=== PATIENT | male | born 1965 | race Caucasian/White ===

== ENCOUNTER → 2016-09-28 | Outpatient (REF) | payer BC | LOC: M LAB REF 11:52 | PROVIDERS: ATTEND Internal Medicine | DX: Z01.89 Encounter for other specified special examinations (principal) ==

== ENCOUNTER → 2019-01-23 | Outpatient (REF) | payer BC ==
[2019-01-23 14:45] LABS: C REACTIVE PROTEIN QUANTITATIV < 0.30 MG/DL (0.00-0.30); RHEUMATOID FACTOR QUANT < 10.0 IU/ML (<15.0)
[2019-01-26 00:09] LABS: ANTINUCLEAR ANTIBODIES DIRECT Negative (Negative); BABESIOSIS LEVEL IGG <1:10 (Neg:<1:10); BABESIOSIS LEVEL IGM <1:10 (Neg:<1:10); Lyme Disease IgG/IgM Antibodie <0.91 ISR (0.00-0.90); Lyme Disease IgM Ab Quantitati <0.80 index (0.00-0.79)
== END ==
LOC: M LAB REF 13:11
PROVIDERS: ATTEND Nurse Practitioner Family
DX: Z11.59 Encounter for screening for other viral diseases (principal); M25.50 Pain in unspecified joint

== ENCOUNTER → 2020-08-25 | Outpatient (REF) | payer BC | LOC: M LAB REF 16:33 | PROVIDERS: ATTEND Physician Assistant Medical | DX: R10.9 Unspecified abdominal pain (principal) ==

== ENCOUNTER → 2020-09-17 | Outpatient (CLI) | payer BC ==
[~2020-09-17] MED LIST: OMEP1CAP73 PO
== END ==
LOC: M LABSMTC 11:47
PROVIDERS: ATTEND Anesthesiology
DX: Z01.812 Encounter for preprocedural laboratory examination (principal); Z20.822 Contact with and (suspected) exposure to COVID-19

== ENCOUNTER 2020-09-22 09:27 | Day surgery (SDC) | payer BC ==
[~2020-09-22] VITALS: Ht 177.8 cm; Wt 95.4 kg
[~2020-09-22 09:27] MED LIST changes: +NS 1,000 ML IV ONE
--- OUTSIDE RECORDS SUMMARY | 2020-09-22 09:33 | CCD ---
Continuity of Care Document (CCD) Created on: 08/25/2020 Robert Slade External Reference #: [id number] : [id number] Sex: Male Author Author Robert MARISCAL Organization Unknown Address [address] [place] [id number] Phone [phone] Care Team Providers Care Donor Center Technician Name Role Phone Paco Massey JR, MD AUTM Unavailable Problems Active Problems Provider Date Dizziness and giddiness Paco Massey MD Onset: Dizziness and giddiness Paco Massey MD Onset: Gastroesophageal reflux disease Paco Massey MD Onset: 12/10/2011 Obstructive sleep apnea syndrome Paco Massey MD Onset : 08/29/2012 Social History Type Date Description Comments Sex Unknown ETOH Use Rarely consumes alcohol Tobacco Use Start: Unknown End: Unknown Patient is a former smoker Quit 1995, 15 pack/year history Allergies, Adverse Reactions, Alerts Description No Known Drug Allergies Medications Active Medications SIG Qnty Indications Ordering Provide r Date Sucralfate 1gm Tablets Take one tablet before breakfast and dinner 60tabs KIMBERLI De La Cruz JR 08/25/[address] 1 by mouth every day 90caps Paco Massey MD 07/24/2019 Proair HFA 108(90Base) mcg/Act Aer osol 2 puffs four times a day as needed 25.5gm Karen Morfin FNP 06/16/2016 Immunizations Description No Information Available Vital Signs Date Vital Result Comment 08/25/2020 3:22pm BP Systolic 130 mmHg BP Diastolic 64 mmHg Heart Rate 58 /min Height 69.25 inches 5'9.25" Weight 209.00 lb BMI (Body Mass Index) 30.6 kg/m2 04/14/2020 8:00am Heart Rate 68 /min Height 69.25 inches 5'9.25" Weight 201.00 lb O2 % BldC Oximetry 99 % BMI (Body Mass Index) 29.5 kg/m2 Results Test Acquired Date Facility Test Result H/L Range Note Laboratory test finding 08/25/2020 [facility] [address] [place] [address] [phone] H Pylori Serum Quant Igg Lolita <pending> Basic Metabolic Panel 08/25/2020 [facility] Garment Cutter: Dr Paco Massey [place] [id number] [phone] Glucose 94 mg/dL 74 - 99 1 BUN 17 mg/dL 7 - 18 Creatinine 1.1 mg/dL 0.6 - 1.3 Sodium 138 mEq/L 136 - 145 Potassium 4.3 mEq/L 3.5 - 5.1 Chloride 102 mEq/L 98 - 107 Carbon Dioxide 30 mEq/L 21 - 32 Calcium 8.7 mg/dL 8.5 - 10.1 GFR >= 60 mL/min >60 GFR >= 60 mL/min >60 2 Complete Blood Count 08/25/2020 [facility] Garment Cutter: [place] [address] [phone] WBC 6.3 x10*3/UL 4.1 - 10.9 RBC 5.17 x10*6/UL 4.20 - 6.30 Hemoglobin 15.4 g/dL 12.0 - 18.0 Hematocrit 45.2 % 37.0 - 51.0 MCV 87.3 fL 80.0 - 97.0 MCH 29.8 pg 26.0 - 32.0 MCHC 34.1 g/dL 31.0 - 38.0 RDW 13.1 % 11.6 - 13.7 PLT 161 x10*3/UL 140 - 440 MPV 9.9 FL 7.8 - 11.0 Lymph % 38.6 % 10.0 - 58.5 Mid % 7.7 % 1.7 - 9.3 Neut % 53.7 % 37.0 - 92.0 Lymph # 2.4 x10*3/UL 0.6 - 4.1 Mid # 0.5 x10*3/UL 0.1 - 0.6 Neut # 3.4 x10*3/UL 2.0 - 7.8 Laboratory test finding 04/14/2020 [facility] kat[facility] espinoza Garment Cutter: [place] [address] [phone] PSA 0.83 ng/mL <4.00 3 Complete Blood Count 04/14/2020 [facility] katja castañeda Garment Cutter: [place] [address] [phone] WBC 5.8 x10*3/UL 4.1 - 10.9 RBC 5.50 x10*6/UL 4.20 - 6.30 Hemoglobin 16.1 g/dL 12.0 - 18.0 Hematocrit 47.8 % 37.0 - 51.0 MCV 86.8 fL 80.0 - 97.0 MCH 29.3 pg 26.0 - 32.0 MCHC 33.8 g/dL 31.0 - 38.0 RDW 13.0 % 11.6 - 13.7 PLT 161 x10*3/UL 140 - 440 MPV 9.8 FL 7.8 - 11.0 Lymph % 32.7 % 10.0 - 58.5 Mid % 8.0 % 1.7 - 9.3 Neut % 59.3 % 37.0 - 92.0 Lymph # 1.9 x10*3/UL 0.6 - 4.1 Mid # 0.5 x10*3/UL 0.1 - 0.6 Neut # 3.4 x10*3/UL 2.0 - 7.8 Comprehensive Chem Profile 04/14/2020 [facility] kat[facility] robb Garment Cutter: [place] [address] [phone] Glucose 89 mg/dL 74 - 99 4 BUN 17 mg/dL 7 - 18 Creatinine 0.9 mg/dL 0.6 - 1.3 Sodium 142 mEq/L 136 - 145 Potassium 4.3 mEq/L 3.5 - 5.1 Chloride 106 mEq/L 98 - 107 Carbon Dioxide 24 mEq/L 21 - 32 Calcium 9.0 mg/dL 8.5 - 10.1 Alk. Phosphatase 93 mg/dL 46 - 116 Total Bilirubin 1.8 mg/dL High 0.2 - 1.0 Ast (Sgot) 23 U/L 15 - 37 Alt (SGPT) 36 U/L 12 - 78 Albumin 4.1 g/dL 3.4 - 5.0 Total Protein 7.2 g/dL 6.4 - 8.2 A/G Ratio 1.32 CALC 1.00 - 1.90 GFR >= 60 mL/min >60 GFR >= 60 mL/min >60 5 Lipid Profile 04/14/2020 [facility] Garment Cutter: Dr Paco Massey [place], [place] [id number] [phone] Cholesterol 172 mg/dL 131 - 200 Triglycerides 99 mg/dL 30 - 150 HDL Cholesterol 49 mg/dL 35 - 60 LDL (Calculated) 103 CALC 50 - 159 1 100-125 mg/dL PRE-DIABET ES/FASTING >126 mg/dL DIABETES/FASTING 2 CHRONIC KIDNEY DISEASE STAGI NG PER NKF STAGE I & II GFR >= 60 NORMAL TO MILDLY DECREASED STAGE III GFR 30-59 MODERATELY DECREASED STAGE IV GFR 15-29 SEVERELY DECREASED STAGE V GFR <15 VERY LITTLE GFR LEFT ESRD GFR <15 ON REVENUE SPECIALIST 3 This assay was performed on the ahoyDoc EXL using the B- Galactosidase/CPRG methodology and should not be compared interchangeably with other methods. The PSA should not be used alone as a screening test for the presence or absence of malignant disease. 4 100-125 mg/dL PRE-DIABET ES/FASTING >126 mg/dL DIABETES/FASTING 5 CHRONIC KIDNEY DISEASE STAGI NG PER NKF STAGE I & II GFR >= 60 NORMAL TO MILDLY DECREASED STAGE III GFR 30-59 MODERATELY DECREASED STAGE IV GFR 15-29 SEVERELY DECREASED STAGE V GFR <15 VERY LITTLE GFR LEFT ESRD GFR <15 ON REVENUE SPECIALIST Procedures Date Code Description Status 04/14/2020 67097 EKG/Interpretation & Report Comp leted 09/29/2012 [id number] Colonoscopy Completed Medical Devices Description No Information Available Encounters Type Date Location Provider Dx Diagnosis Office Visit 04/14/2020 8:00a [facility] Paco Massey MD Z00.00 Encntr for general adult medical exam w/ o abnormal findings M25.511 Pain in right shoulder K21.9 Gastro-esophageal reflux dis ease without esophagitis G47.33 Obstructive sleep apnea (sal lt) (pediatric) E80.4 Gilbert syndrome E78.00 Pure hypercholesterolemia, u nspecified K58.9 Irritable bowel syndrome wit hout diarrhea E66.3 Overweight Z68.29 Body mass index (BMI) 29.0-2 9.9, adult Z12.5 Encounter for screening for malignant neoplasm of prostate Assessments Date Code Description Provider 04/14/2020 Z00.00 Encounter for genera l adult medical examination without abnormal findings Paco Massey MD 04/14/2020 M25.511 Pain in right shoulder Paco Massey MD 04/14/2020 K21.9 Gastro-esophageal reflux disease without esophagitis Paco Massey MD 04/14/2020 G47.33 Obstructive sleep apnea (adult) (pediatric) Paco Massey MD 04/14/2020 E80.4 Gilbert syndrome Paco haskins MD 04/14/2020 E78.00 Pure hypercholesterolemia, unspe cified Paco Massey MD 04/14/2020 K58.9 Irritable bowel syndrome without diarrhea Paco Massey MD 04/14/2020 E66.3 Overweight Paco perez MD 04/14/2020 Z68.29 Body mass index (BMI) 29.0-29.9, adult Paco Massey MD 04/14/2020 Z12.5 Encounter for screening for khris gnant neoplasm of prostate Paco Massey MD Plan of Treatment Future Appointment(s):* 04/15/2021 8:00 am - Paco Massey MD at [facility] 08/25/2020 - Thom Mariscal JR PA* All * New Medication:* Sucralfate 1 gm - Take one tablet before breakfast and dinner Functional Status Description No Information Available Mental Status Description No Information Available Referrals Refer to Reason for Referral Status Appt Date [facility] Dermatology CRYSTAL GROWING TECHNICIAN CONSULT FOR FACIAL LESIONS, ? BASAL VICKY L Sent [address] [id number] [phone]
--- OUTSIDE RECORDS SUMMARY | 2020-09-22 09:33 | CCD | Continuity of Care Document ---
Author Author Robert MARISCAL Organization Unknown Address [address] [place] [address] Phone [phone] Care Team Providers Care System Controller Name Role Phone Paco Massey JR, MD [...] H/L Range Note Laboratory test finding 08/25/2020 [facility] [address] [place] [address] [phone] H Pylori Serum Quant IgG Lolita 0.51 Normal 0.0 0-0.79 1 Basic Metabolic Panel 08/25/2020 [facility] Shuttle Route Vehicle Operator: Dr Paco Massey [place], [place] [id number] [phone] Glucose 94 mg/dL 74 - 99 2 BUN 17 mg/dL 7 - 18 Creatinine 1.1 mg/dL 0.6 - 1.3 Sodium 138 mEq/L 136 - 145 Potassium 4.3 mEq/L 3.5 - 5.1 Chloride 102 mEq/L 98 - 107 Carbon Dioxide 30 mEq/L 21 - 32 Calcium 8.7 mg/dL 8.5 - 10.1 GFR >= 60 mL/min >60 GFR >= 60 mL/min >60 3 Complete Blood Count 08/25/2020 [facility] Shuttle Route Vehicle Operator: Dr Paco Massey [place], [place] [address] [phone] WBC 6.3 x10*3/UL 4.1 - 10.9 RBC [...] 2.0 - 7.8 Laboratory test finding 04/14/2020 [facility] Supervisor katja espinoza Shuttle Route Vehicle Operator: [place] [address] [phone] PSA 0.83 ng/mL <4.00 4 Complete Blood Count 04/14/2020 [facility] katja castañeda Shuttle Route Vehicle Operator: Dr [place] [address] [phone] WBC 5.8 x10*3/UL 4.1 - 10.9 RBC [...] 2.0 - 7.8 Comprehensive Chem Profile 04/14/2020 [facility] katja robb Shuttle Route Vehicle Operator: [place] [address] [phone] Glucose 89 mg/dL 74 - 99 5 BUN 17 mg/dL 7 - 18 Creatinine [...] mL/min >60 GFR >= 60 mL/min >60 6 Lipid Profile 04/14/2020 [facility] Shuttle Route Vehicle Operator: [place] [address] [phone] Cholesterol 172 mg/dL 131 - 200 Triglycerides 99 mg/dL 30 - 150 HDL Cholesterol 49 mg/dL 35 - 60 LDL (Calculated) 103 CALC 50 - 159 1 Result Units: Index Value Negative <0.80 Equivocal 0.80 - 0.89 Positive >0.89 Performed at: RN - [facility] [address] [id number] Shuttle Route Vehicle Operator: Jordyn Valdovinos MD, Phone: [phone] 2 100-125 mg/dL PRE-DIABET ES/FASTING >126 mg/dL DIABETES/FASTING 3 CHRONIC KIDNEY DISEASE STAGI NG PER NKF STAGE I & II GFR >= 60 NORMAL TO MILDLY DECREASED STAGE III GFR 30-59 MODERATELY DECREASED STAGE IV GFR 15-29 SEVERELY DECREASED STAGE V GFR <15 VERY LITTLE GFR LEFT ESRD GFR <15 ON AGRICULTURE INTERNSHIP 4 This assay was performed on the Siemens Dimension EXL using the B- Galactosidase/CPRG methodology and should not be compared interchangeably with other methods. The PSA should not be used alone as a screening test for the presence or absence of malignant disease. 5 100-125 mg/dL PRE-DIABET ES/FASTING >126 mg/dL DIABETES/FASTING 6 CHRONIC KIDNEY DISEASE STAGI NG PER NKF STAGE I & II GFR >= 60 NORMAL TO MILDLY DECREASED STAGE III GFR 30-59 MODERATELY DECREASED STAGE IV GFR 15-29 SEVERELY DECREASED STAGE V GFR <15 VERY LITTLE GFR LEFT ESRD GFR <15 ON AGRICULTURE INTERNSHIP Procedures Date Code Description Status 04/14/2020 56338 EKG/Interpretation & Report Comp leted 09/29/2012 [id number] Colonoscopy Completed Medical Devices Description No Information Available Encounters Type Date Location Provider Dx Diagnosis Office Visit 08/25/2020 3:20p [facility] R10.816 Epigastric abdominal tendern ess E78.00 Pure hypercholesterolemia, u nspecified Office Visit 04/14/2020 8:00a [facility] Paco Massey MD Z00.00 Encntr [...] of prostate Assessments Date Code Description Provider 08/25/2020 R10.816 Epigastric abdominal tenderness KIMBERLI De La Cruz JR 08/25/2020 E78.00 Pure hypercholesterolemia, unspe cified KIMBERLI De La Cruz JR 04/14/2020 Z00.00 Encounter for genera l adult medical examination without abnormal findings Paco Massey MD 04/14/2020 M25.511 Pain in right shoulder Paco Masesy MD 04/14/2020 K21.9 Gastro-esophageal reflux disease without [...] 8:00 am - Paco Massey MD at [facility] 04/14/2020 - Paco Massey MD* Z00.00 Encounter for general adult medical examination without abnormal findings * M25.511 Pain in right shoulder * K21.9 Gastro-esophageal reflux disease without esophagitis * G47.33 Obstructive sleep apnea (adult) (pediatric) * E80.4 Gilbert syndrome * E78.00 Pure hypercholesterolemia, unspecified * K58.9 Irritable bowel syndrome without diarrhea * E66.3 Overweight * Z68.29 Body mass index (BMI) 29.0-29.9, adult * Z12.5 Encounter for screening for malignant neoplasm of prostate * All * Comments:* Question basal cell CA. Refer to dermatology. Functional Status Description No Information Available Mental Status Description No Information Available Referrals Refer to Reason for Referral Status Appt Date Domingo Ospina MD COMPUTER SUPPORT SPECIALIST INSTRUCTOR CONSULT FOR SCREENING EGD /COLONOSCOPY DX: UPPER ABD PAIN Patient Notified 09/09/[address] [facility] [address] [phone] Solo Frias MD CONSULT FOR SCREENING EGD/CO LONOSCOPY DX: UPPER ABD PAIN PLEASE CANCEL REFERRAL, THANK YOU Patient Declined [facility] Medical Practice [address] [facility] [address] [facility] [address] [phone] [facility] Dermatology COMPUTER SUPPORT SPECIALIST INSTRUCTOR CONSULT FOR FACIAL LESIONS, ? BASAL VICKY L Sent 826 [facility] [address] [place] [address] [phone]
--- OUTSIDE RECORDS SUMMARY | 2020-09-22 09:33 | CCD | Continuity of Care Document ---
Author Author Robert HUTCHISON Organization Unknown Address [address] [place] [address] Phone [phone] Care Team Providers Care Manager Insurance Name Role Phone Paco Massey JR, MD [...] H/L Range Note Laboratory test finding 08/25/2020 [facility] [address] [place] [address] [phone] H Pylori Serum Quant Igg Lolita <pending> Laboratory test finding 04/14/2020 [facility] katja espinoza Agriscience Teacher: [place] [address] [phone] PSA 0.83 ng/mL <4.00 1 Complete Blood Count 04/14/2020 [facility] Agriscience Teacher: [place] [address] [phone] WBC 5.8 x10*3/UL 4.1 - 10.9 RBC [...] 2.0 - 7.8 Comprehensive Chem Profile 04/14/2020 [facility] Agriscience Teacher: [place] [address] [phone] Glucose 89 mg/dL 74 - 99 2 BUN 17 [...] >60 GFR >= 60 mL/min >60 3 Lipid Profile 04/14/2020 [facility] Agriscience Teacher: [place] [address] [phone] Cholesterol 172 mg/dL 131 - 200 Triglycerides 99 mg/dL 30 - 150 HDL Cholesterol 49 mg/dL 35 - 60 LDL (Calculated) 103 CALC 50 - 159 1 This assay was performed on the Siemens Dimension EXL using the B- Galactosidase/CPRG methodology and should not be compared interchangeably with other methods. The PSA should not be used alone as a screening test for the presence or absence of malignant disease. 2 100-125 mg/dL PRE-DIABET ES/FASTING >126 mg/dL DIABETES/FASTING 3 CHRONIC KIDNEY DISEASE STAGI NG PER NKF STAGE I & II GFR >= 60 NORMAL TO MILDLY DECREASED STAGE III GFR 30-59 MODERATELY DECREASED STAGE IV GFR 15-29 SEVERELY DECREASED STAGE V GFR <15 VERY LITTLE GFR LEFT ESRD GFR <15 ON CASEWORKER INTAKE Procedures Date Code Description Status 04/14/2020 33538 EKG/Interpretation & Report Comp leted 09/29/2012 [id number] Colonoscopy Completed Medical Devices Description No Information Available Encounters Type Date Location Provider Dx Diagnosis Office Visit 04/14/2020 8:00a [facility] Paco Massey MD Z00.00 Encntr [...] 8:00 am - Paco Massey MD at [facility] 08/25/2020 - KIMBERLI De La Cruz JR* All * New Medication:* Sucralfate 1 gm - Take one tablet before breakfast and dinner Functional Status Description No Information Available Mental Status Description No Information Available Referrals Refer to Reason for Referral Status Appt Date [facility] Dermatology PSYCHOMETRICIAN CONSULT FOR FACIAL LESIONS, ? BASAL VICKY L Sent [address] [address] [phone]
--- OUTSIDE RECORDS SUMMARY | 2020-09-22 09:33 | CCD | Continuity of Care Document ---
Author Author Robert OSPINA M.D. Organization Unknown Address [address] [place] [address] Phone [phone] Care Team Providers Care Grapple Operator Name Role Phone Thom Mariscal Collins F M.D. AUTKary [phone] Problems Active Problems Provider Date Screening for malignant neoplasm of colon Domingo thapa M.D. Onset: 09/09/2020 Social History Type Date Description Comments Sex Unknown ETOH Use Denies alcohol use Tobacco Use Start: Unknown Patient has never smoked Allergies, Adverse Reactions, Alerts Description No Known Drug Allergies Medications Active Medications SIG Qnty Indications Ordering Provide r Date Omeprazole 40mg Capsules DR 1 cap by mouth twice a day 180caps Domingo Ospina M.D. [address] [id number] Tablets as directed 1box Domingo Ospina M.D. 09/09/2020 Sucralfate 1gm Tablets Take 1 Tablet By Mouth Before Breakfast And Dinner Unknown Omeprazole 20mg Capsules DR Unknown Immunizations Description No Information Available Vital Signs Date Vital Result Comment 09/09/2020 2:46pm Height 69.5 inches 5'9.50" Weight 207.00 lb BP Systolic 135 mmHg BP Diastolic 89 mmHg Heart Rate 55 /min BMI (Body Mass Index) 30.1 kg/m2 Weight 93.895 kg Body Temperature 97.7 F Results Description No Information Available Procedures Description No Information Available Medical Devices Description No Information Available Encounters Type Date Location Provider Dx Diagnosis Office Visit 09/09/2020 2:15p Main Office Domingo Ospina M.D. R 10.30 Lower abdominal pain, unspecified R14.0 Abdominal distension (gaseou s) R11.0 Nausea Assessments Date Code Description Provider 09/09/2020 R10.30 Lower abdominal pain, unspecifie d Domingo Ospina M.D. 09/09/2020 R14.0 Abdominal distension (gaseous) Juliane corinne Ospina M.D. 09/09/2020 R11.0 Nausea Domingo pinto M.D. Plan of Treatment Future Appointment(s):* 09/15/2020 7:00 am - Jane-Ana at Main Office * 09/22/2020 10:15 am - Domingo Ospina M.D. at Main Office 09/09/2020 - Domingo Ospina M.D.* R10.30 Lower abdominal pain, unspecified * Comments:* 55 yo wm who presents for a h/o abdominal pain/bloating/nausea. No c/o fevers, weight loss, change in bowel habits, or rectal bleeding. No family h/o colon cancer. No h/o chest pain, or sob. Plan:1. Colonoscopy + egd.2. Informed consent. * R14.0 Abdominal distension (gaseous)* Comments:* As above. * R11.0 Nausea* Comments:* As above. Functional Status Description No Information Available Mental Status Description No Information Available Referrals Description No Information Available
--- OUTSIDE RECORDS SUMMARY | 2020-09-22 09:33 | CCD ---
Continuity of Care Document (CCD) Created on: 09/11/2020 Robert Slade External Reference #: [id number] : 1965 Sex: Female Author Author Robert OSPINA M.D. Organization Unknown Address [address] [place] [address] Phone [phone] Care Team Providers Care Spring Tacker Name Role Phone Thom Mariscal Collins F M.D. AUTKary [phone] Problems Active Problems Provider Date Screening for [...] day 180caps Domingo Ospina M.D. [address] [id number] Tablets as directed 1box Domingo Ospina M.D. [...] Medical Devices Description No Information Available Encounters Description No Information Available Assessments Date Code Description Provider 09/09/2020 R10.30 Lower abdominal pain, unspecifie d Domingo Ospina M.D. 09/09/2020 R14.0 Abdominal distension (gaseous) G corinne Ospina M.D. 09/09/2020 R11.0 Nausea Domingo pinto M.D. Plan of Treatment Future Appointment(s):* 09/15/2020 7:00 am - JaneAna at Main Office * 09/22/2020 10:15 am [...]
--- OUTSIDE RECORDS SUMMARY | 2020-09-22 09:33 | CCD | Continuity of Care Document ---
Author Author Robert HUTCHISON Organization Unknown Address [address] [place] [address] Phone [phone] Care Team Providers Care Supply Manager Name Role Phone Paco Massey JR, MD [...] DR 1 by mouth every day 90caps Pcao Massey MD 07/24/2019 Proair HFA 108(90Base) mcg/Act [...] H/L Range Note Laboratory test finding 08/25/2020 [facility] [address] [place] [address] [phone] H Pylori Serum Quant IgG Lolita 0.51 Normal 0.0 0-0.79 1 Basic Metabolic Panel 08/25/2020 [facility] Sinker Puller: Dr Paco Massey [place], [place] [address] [phone] Glucose 94 mg/dL 74 - 99 2 [...] mL/min >60 3 Complete Blood Count 08/25/2020 [facility] Sinker Puller: Dr Paco Massey [place], [place] [id number] [phone] WBC 6.3 x10*3/UL 4.1 - 10.9 RBC [...] 2.0 - 7.8 Laboratory test finding 04/14/2020 [facility] katja espinoza Sinker Puller: [place] [address] [phone] PSA 0.83 ng/mL <4.00 4 Complete Blood Count 04/14/2020 [facility] In[facility] katja castañeda Sinker Puller: [place] [address] [phone] WBC 5.8 x10*3/UL 4.1 - 10.9 RBC [...] 2.0 - 7.8 Comprehensive Chem Profile 04/14/2020 [facility] katja robb Sinker Puller: [place] [address] [phone] Glucose 89 mg/dL 74 - 99 5 [...] 60 mL/min >60 6 Lipid Profile 04/14/2020 [facility] Sinker Puller: [place] [address] [phone] Cholesterol 172 mg/dL 131 - 200 Triglycerides 99 mg/dL 30 - 150 HDL Cholesterol 49 mg/dL 35 - 60 LDL (Calculated) 103 CALC 50 - 159 1 Result Units: Index Value Negative <0.80 Equivocal 0.80 - 0.89 Positive >0.89 Performed at: - [facility] [id number] Sinker Puller: Jordyn Valdovinos MD, Phone: [phone] 2 100-125 mg/dL PRE-DIABET ES/FASTING >126 mg/dL DIABETES/FASTING 3 CHRONIC KIDNEY DISEASE STAGI NG PER NKF STAGE I & II GFR >= 60 NORMAL TO MILDLY DECREASED STAGE III GFR 30-59 MODERATELY DECREASED STAGE IV GFR 15-29 SEVERELY DECREASED STAGE V GFR <15 VERY LITTLE GFR LEFT ESRD GFR <15 ON DOCUMENT REVIEW ATTORNEY 4 This assay was performed on the [...] LITTLE GFR LEFT ESRD GFR <15 ON DOCUMENT REVIEW ATTORNEY Procedures Date Code Description Status 04/14/2020 86111 EKG/Interpretation & Report Comp leted 09/29/2012 [id number] Colonoscopy Completed Medical Devices Description No Information Available Encounters Type Date Location Provider Dx Diagnosis Office Visit 04/14/2020 8:00a [facility] Paco Massey MD Z00.00 Encntr [...] abdominal tenderness KIMBERLI De La Cruz JR 04/14/2020 Z00.00 [...] 8:00 am - Paco Massey MD at [facility] 04/14/2020 - Paco Massey MD* [...] to Reason for Referral Status Appt Date Solo Frias MD CONSULT FOR SCREENING EGD/COLONOSCOPY D X: UPPER ABD PAIN Sent [facility] Medical Practice 826 [facility] [address] [facility] [address] [phone] [facility] Dermatology DIRECT ENTRY MIDWIFE CONSULT FOR FACIAL LESIONS, ? BASAL VICKY L Sent 826 [facility] [address] [place] [address] [phone]
--- OUTSIDE RECORDS SUMMARY | 2020-09-22 09:34 | CCD ---
Author Author [facility] Organization [facility] Address Unknown Phone Unavailable Care Team Providers Care Clerical Stock Inspector Name Role Phone Simón Ospina MD Unavailable Unavailable Simón Ospina MD Unavailable Unavailable Simón Ospina MD Unavailable Unavailable Simón Ospina MD Unavailable Unavailable Simón Ospina MD Unavailable Unavailable Simón Ospina MD Unavailable Unavailable Simón Ospina MD Unavailable Unavailable Simón Ospina MD Unavailable Unavailable Simón Ospina MD Unavailable Unavailable Simón Ospina MD Unavailable Unavailable Simón Ospina MD Unavailable Unavailable Simón Ospina MD Unavailable Unavailable Simón Ospina MD Unavailable Unavailable Simón Ospina MD Unavailable Unavailable Simón Ospina MD Unavailable Unavailable Simón Ospina MD Unavailable Unavailable Simón Ospina MD Unavailable Unavailable Simón Ospina MD Unavailable Unavailable Simón Ospina MD Unavailable Unavailable Simón Ospina MD Unavailable Unavailable Simón Ospina MD Unavailable Unavailable Simón Ospina MD Unavailable Unavailable Simón Ospina MD Unavailable Unavailable Simón Ospina MD Unavailable Unavailable Simón Ospina MD Unavailable Unavailable Simón Ospina MD Unavailable Unavailable Simón Ospina MD Unavailable Unavailable Simón Ospina MD Unavailable Unavailable Anai, S Domingo MD Unavailable Unavailable Anai, S Domingo MD Unavailable Unavailable Anai, S Domingo MD Unavailable Unavailable Anai, S Domingo MD Unavailable Unavailable Anai, S Domingo MD Unavailable Unavailable Anai, S Domingo MD Unavailable Unavailable Anai, S Domingo MD Unavailable Unavailable Anai, S Domingo MD Unavailable Unavailable Anai, S Domingo MD Unavailable Unavailable Anai, S Domingo MD Unavailable Unavailable Anai, S Domingo MD Unavailable Unavailable Anai, S Domingo MD Unavailable Unavailable Anai, S Domingo MD Unavailable Unavailable Anai, S Domingo MD Unavailable Unavailable Anai, S Domingo MD Unavailable Unavailable Anai, S Domingo MD Unavailable Unavailable Anai, S Domingo MD Unavailable Unavailable Anai, S Domingo MD Unavailable Unavailable Anai, S Domingo MD Unavailable Unavailable Anai, S Domingo MD Unavailable Unavailable Clair, D Long HOSPICE ADMITTING CLERK Unavailable Unavailable Clair, D Long HOSPICE ADMITTING CLERK Unavailable Unavailable Clair, D Long HOSPICE ADMITTING CLERK Unavailable Unavailable Clair, D Long HOSPICE ADMITTING CLERK Unavailable Unavailable Clair, D Long HOSPICE ADMITTING CLERK Unavailable Unavailable Clair, D Long HOSPICE ADMITTING CLERK Unavailable Unavailable Clair, D Long HOSPICE ADMITTING CLERK Unavailable Unavailable Clair, D Long HOSPICE ADMITTING CLERK Unavailable Unavailable Clair, D Long HOSPICE ADMITTING CLERK Unavailable Unavailable Clair, D Long HOSPICE ADMITTING CLERK Unavailable Unavailable Clair, D Long HOSPICE ADMITTING CLERK Unavailable Unavailable Clair, D Long HOSPICE ADMITTING CLERK Unavailable Unavailable Clair, D Long HOSPICE ADMITTING CLERK Unavailable Unavailable Clair, D Long HOSPICE ADMITTING CLERK Unavailable Unavailable Clair, D Long HOSPICE ADMITTING CLERK Unavailable Unavailable Clair, D Long HOSPICE ADMITTING CLERK Unavailable Unavailable Clair, D Long HOSPICE ADMITTING CLERK Unavailable Unavailable Clair, D Long HOSPICE ADMITTING CLERK Unavailable Unavailable Clair, D Long HOSPICE ADMITTING CLERK Unavailable Unavailable Clair, D Long HOSPICE ADMITTING CLERK Unavailable Unavailable Clair, D Long HOSPICE ADMITTING CLERK Unavailable Unavailable Clair, D Long HOSPICE ADMITTING CLERK Unavailable Unavailable Clair, D Long HOSPICE ADMITTING CLERK Unavailable Unavailable Clair, D Long HOSPICE ADMITTING CLERK Unavailable Unavailable Clair, D Long HOSPICE ADMITTING CLERK Unavailable Unavailable Clair, D Long HOSPICE ADMITTING CLERK Unavailable Unavailable Clair, D Long HOSPICE ADMITTING CLERK Unavailable Unavailable Clair, D Long HOSPICE ADMITTING CLERK Unavailable Unavailable Clair, D Long HOSPICE ADMITTING CLERK Unavailable Unavailable Clair, D Long HOSPICE ADMITTING CLERK Unavailable Unavailable Clair, D Long HOSPICE ADMITTING CLERK Unavailable Unavailable Clair, D Long HOSPICE ADMITTING CLERK Unavailable Unavailable Clair, D Long HOSPICE ADMITTING CLERK Unavailable Unavailable Clair, D Long HOSPICE ADMITTING CLERK Unavailable Unavailable Clair, D Long HOSPICE ADMITTING CLERK Unavailable Unavailable Loreta Massey MD Unavailable Unavailable Loreta Massey MD Unavailable Unavailable Loreta Massey MD Unavailable Unavailable Loreta Massey MD Unavailable Unavailable ShilpaLoreta MD Unavailable Unavailable ShilpaLoreta MD Unavailable Unavailable GilaLoreta MD Unavailable Unavailable ShilpaLoreta MD Unavailable Unavailable ShilpaLoreta MD Unavailable Unavailable GilaLoreta MD Unavailable Unavailable ShilpaLoreta MD Unavailable Unavailable GilaLoreta MD Unavailable Unavailable ShilpaLoreta MD Unavailable Unavailable GilaLoreta MD Unavailable Unavailable ShilpaLoreta MD Unavailable Unavailable ShilpaLoreta MD Unavailable Unavailable GilaLoreta MD Unavailable Unavailable ShilpaLoreta MD Unavailable Unavailable GilaLoreta MD Unavailable Unavailable GilaLoreta MD Unavailable Unavailable ShilpaLoreta MD Unavailable Unavailable GilaLoreta MD Unavailable Unavailable GilaLoreta MD Unavailable Unavailable ShilpaLoreta MD Unavailable Unavailable ShilpaLoreta MD Unavailable Unavailable ShilpaLoreta MD Unavailable Unavailable GilaLoreta MD Unavailable Unavailable ShilpaLoreta MD Unavailable Unavailable GilaLoreta MD Unavailable Unavailable GilaLoreta MD Unavailable Unavailable ShilpaLoreta MD Unavailable Unavailable ShilpaLoreta MD Unavailable Unavailable ShilpaLoreta pang MD Unavailable Unavailable GilaLoreta MD Unavailable Unavailable ShilpaLoreta MD Unavailable Unavailable GilaLoreta MD Unavailable Unavailable ShilpaLoreta MD Unavailable Unavailable ShilpaLoreta MD Unavailable Unavailable ShilpaLoreta pang MD Unavailable Unavailable ShilpaLoreta pang MD Unavailable Unavailable ShilpaLoreat pang MD Unavailable Unavailable ShilpaLoreta MD Unavailable Unavailable GilaLoreta pang MD Unavailable Unavailable GilaLoreta MD Unavailable Unavailable GilaLoreta MD Unavailable Unavailable GilaLoreta pang MD Unavailable Unavailable ShilpaLoreta pang MD Unavailable Unavailable GilaLoreta pang MD Unavailable Unavailable GilaLoreta MD Unavailable Unavailable ShilpaLoreta MD Unavailable Unavailable GilaLoreta MD Unavailable Unavailable GilaLoreta MD Unavailable Unavailable GilaLoreta MD Unavailable Unavailable GilaLoreta MD Unavailable Unavailable ShilpaLoreta MD Unavailable Unavailable ShilpaLoreta MD Unavailable Unavailable ShilpaLoreta MD Unavailable Unavailable ShilpaLoreta MD Unavailable Unavailable GilaLoreta MD Unavailable Unavailable GilaLoreta MD Unavailable Unavailable Shilpa, F Antonio MD Unavailable Unavailable Loreta Massey MD Unavailable Unavailable ShilpaLoreta pang MD Unavailable Unavailable GilaLoreta pang MD Unavailable Unavailable ShilpaLoreta pang MD Unavailable Unavailable ShilpaLoreta pang MD Unavailable Unavailable GilaLoreta pang MD Unavailable Unavailable GilaLoreta pang MD Unavailable Unavailable GilaLoreta pang MD Unavailable Unavailable ShilpaLoreta pang MD Unavailable Unavailable GilaLoreta pang MD Unavailable Unavailable GilaLoreta pang MD Unavailable Unavailable ShilpaLoreta pang MD Unavailable Unavailable ShilpaLoreta pang MD Unavailable Unavailable GilaLoreta pang MD Unavailable Unavailable GilaLoreta pang MD Unavailable Unavailable GilaLoreta pang MD Unavailable Unavailable GilaLoreta pang MD Unavailable Unavailable GilaLoreta pang MD Unavailable Unavailable GilaLoreta pang MD Unavailable Unavailable GilaLoreta pang MD Unavailable Unavailable Loreta Massey MD Unavailable Unavailable GilaLoreta pang MD Unavailable Unavailable ShilpaLoreta pang MD Unavailable Unavailable ShilpaLoreta pang MD Unavailable Unavailable GilaLoreta pang MD Unavailable Unavailable PICKERAL JR, J ASHLEY PA-C Unavailable Unavailable PICKERAL JR, J ASHLEY PA-C Unavailable Unavailable PICKERAL JR, J ASHLEY PA-C Unavailable Unavailable PICKERAL JR, J ASHLEY PA-C Unavailable Unavailable PICKERAL JR, J ASHLEY PA-C Unavailable Unavailable PICKERAL JR, J ASHLEY PA-C Unavailable Unavailable PICKERAL JR, J ASHLEY PA-C Unavailable Unavailable PICKERAL JR, J ASHLEY PA-C Unavailable Unavailable PICKERAL JR, J ASHLEY PA-C Unavailable Unavailable PICKERAL JR, J ASHLEY PA-C Unavailable Unavailable PICKERAL JR, J ASHLEY PA-C Unavailable Unavailable PICKERAL JR, J ASHLEY PA-C Unavailable Unavailable PICKERAL JR, J ASHLEY PA-C Unavailable Unavailable PICKERAL JR, J ASHLEY PA-C Unavailable Unavailable PICKERAL JR, J ASHLEY PA-C Unavailable Unavailable PICKERAL JR, J ASHLEY PA-C Unavailable Unavailable PICKERAL JR, J ASHLEY PA-C Unavailable Unavailable PICKERAL JR, J ASHLEY PA-C Unavailable Unavailable PICKERAL JR, J ASHLEY PA-C Unavailable Unavailable PICKERAL JR, J ASHLEY PA-C Unavailable Unavailable Nataliya MAK MD Unavailable Unavailable Nataliya MAK MD Unavailable Unavailable Nataliya MAK MD Unavailable Unavailable Nataliya MAK MD Unavailable Unavailable PARNES, Z JOELLE MD Unavailable Unavailable PARNES, Z JOELLE MD Unavailable Unavailable PARNES, Z JOELLE MD Unavailable Unavailable PARNES, Z JOELLE MD Unavailable Unavailable PARNES, Z JOELLE MD Unavailable Unavailable PARNES, Z JOELLE MD Unavailable Unavailable PARNES, Z JOELLE MD Unavailable Unavailable PARNES, Z JOELLE MD Unavailable Unavailable PARNES, Z JOELLE MD Unavailable Unavailable PARNES, Z JOELLE MD Unavailable Unavailable PARNES, Z JOELLE MD Unavailable Unavailable PARNES, Z JOELLE MD Unavailable Unavailable PARNES, Z JOELLE MD Unavailable Unavailable PARNES, Z JOELLE MD Unavailable Unavailable PARNES, Z JOELLE MD Unavailable Unavailable PARNES, Z JOELLE MD Unavailable Unavailable PARNES, Z JOELLE MD Unavailable Unavailable PARNES, Z JOELLE MD Unavailable Unavailable PARNES, Z JOELLE MD Unavailable Unavailable PARNES, Z JOELLE MD Unavailable Unavailable PARNES, Z JOELLE MD Unavailable Unavailable PARNES, Z JOELLE MD Unavailable Unavailable PARNES, Z JOELLE MD Unavailable Unavailable PARNES, Z JOELLE MD Unavailable Unavailable PARNES, Z JOELLE MD Unavailable Unavailable PARNES, Z JOELLE MD Unavailable Unavailable PARNES, Z JOELLE MD Unavailable Unavailable PARNES, Z JOELLE MD Unavailable Unavailable PARNES, Z JOELLE MD Unavailable Unavailable PARNES, Z JOELLE MD Unavailable Unavailable PARNES, Z JOELLE MD Unavailable Unavailable PARNES, Z JOELLE MD Unavailable Unavailable PARNES, Z JOELLE MD Unavailable Unavailable PARNES, Z JOELLE MD Unavailable Unavailable Loreta Massey MD Unavailable Unavailable Loreta Massey MD Unavailable Unavailable Loreta Massey MD Unavailable Unavailable Loreta Massey MD Unavailable Unavailable Loreta Massey MD Unavailable Unavailable Loreta Massey MD Unavailable Unavailable Loreta Massey MD Unavailable Unavailable Loreta Massey MD Unavailable Unavailable Loreta Massey MD Unavailable Unavailable Loreta Massey MD Unavailable Unavailable Loreta Massey MD Unavailable Unavailable Loreta Massey MD Unavailable Unavailable Loreta Massey MD Unavailable Unavailable Loreta Massey MD Unavailable Unavailable Loreta Massey MD Unavailable Unavailable Loreta Massey MD Unavailable Unavailable Loreta Massey MD Unavailable Unavailable Loreta Massey MD Unavailable Unavailable Loreta Massey MD Unavailable Unavailable Loreta Massey MD Unavailable Unavailable Loreta Massey MD Unavailable Unavailable Loreta Massey MD Unavailable Unavailable GilaLoreta MD Unavailable Unavailable ShilpaLoreta MD Unavailable Unavailable ShilpaLoreta MD Unavailable Unavailable ShilpaLoreta MD Unavailable Unavailable GilaLoreta MD Unavailable Unavailable GilaLoreta MD Unavailable Unavailable GilaLoreta MD Unavailable Unavailable GilaLoreta MD Unavailable Unavailable ShilpaLoreta MD Unavailable Unavailable ShilpaLoreta MD Unavailable Unavailable GilaLoreta MD Unavailable Unavailable GilaLoreta MD Unavailable Unavailable ShilpaLoreta MD Unavailable Unavailable ShilpaLoreta MD Unavailable Unavailable ShilpaLoreta MD Unavailable Unavailable GilaLoreta MD Unavailable Unavailable GilaLoreta MD Unavailable Unavailable GilaLoreta MD Unavailable Unavailable GilaLoreta MD Unavailable Unavailable ShilpaLoreta MD Unavailable Unavailable GilaLoreta MD Unavailable Unavailable ShilpaLoreta MD Unavailable Unavailable ShilpaLoreta MD Unavailable Unavailable ShilpaLoreta MD Unavailable Unavailable GilaLoreta MD Unavailable Unavailable ShilpaLoreta MD Unavailable Unavailable GilaLoreta MD Unavailable Unavailable GilaLoreta MD Unavailable Unavailable GilaLoreta MD Unavailable Unavailable GilaLoreta MD Unavailable Unavailable GilaLoreta MD Unavailable Unavailable ShilpaLoreta MD Unavailable Unavailable ShilpaLoreta MD Unavailable Unavailable ShilpaLoreta MD Unavailable Unavailable GilaLoreta MD Unavailable Unavailable ShilpaLoreta MD Unavailable Unavailable ShilpaLoreta MD Unavailable Unavailable GilaLoreta MD Unavailable Unavailable ShilpaLoreta MD Unavailable Unavailable ShilpaLoreta MD Unavailable Unavailable ShilpaLoreta MD Unavailable Unavailable ShilpaLoreta MD Unavailable Unavailable GilaLoreta MD Unavailable Unavailable GilaLoreta MD Unavailable Unavailable ShilpaLoreta MD Unavailable Unavailable ShilpaLoreta MD Unavailable Unavailable ShilpaLoreta MD Unavailable Unavailable GilaLoreta MD Unavailable Unavailable ShilpaLoreta MD Unavailable Unavailable ShilpaLoreta MD Unavailable Unavailable ShilpaLoreta MD Unavailable Unavailable ShilpaLoreta MD Unavailable Unavailable ShilpaLoreta MD Unavailable Unavailable ShilpaLoreta MD Unavailable Unavailable ShilpaLoreta MD Unavailable Unavailable ShilpaLoreta MD Unavailable Unavailable GilaLoreta MD Unavailable Unavailable ShilpaLoreta MD Unavailable Unavailable GilaLoreta MD Unavailable Unavailable ShilpaLoerta MD Unavailable Unavailable GilaLoreta MD Unavailable Unavailable GilaLoreta MD Unavailable Unavailable GilaLoreta MD Unavailable Unavailable GilaLoreta MD Unavailable Unavailable Bartoszewski, Karmen Ariane MS, RPA-C Unavailable Unav ailable Bartoszewski, Karmen Ariane MS, RPA-C Unavailable Unav ailable Bartoszewski, Karmen Ariane MS, RPA-C Unavailable Unav ailable Bartoszewski, Karmen Ariane MS, RPA-C Unavailable Unav ailable Bartoszewski, Karmen Ariane MS, RPA-C Unavailable Unav ailable Bartoszewski, Karmen Ariane MS, RPA-C Unavailable Unav ailable Bartoszewski, Karmen Ariane MS, RPA-C Unavailable Unav ailable Bartoszewski, Karmen Ariane MS, RPA-C Unavailable Unav ailable Bartoszewski, Karmen Ariane MS, RPA-C Unavailable Unav ailable Bartoszewski, Karmen Ariane MS, RPA-C Unavailable Unav ailable Bartoszewski, Karmen Ariane MS, RPA-C Unavailable Unav ailable Bartoszewski, Karmen Ariane MS, RPA-C Unavailable Unav ailable Bartoszewski, Karmen Ariane MS, RPA-C Unavailable Unav ailable Bartoszewski, Karmen Ariane MS, RPA-C Unavailable Unav ailable Bartoszewski, Karmen Ariane MS, RPA-C Unavailable Unav ailable Bartoszewski, Karmen Ariane MS, RPA-C Unavailable Unav ailable Bartoszewski, Karmen Ariane MS, RPA-C Unavailable Unav ailable Bartoszewski, Karmen Ariane MS, RPA-C Unavailable Unav ailable Bartoszewski, Karmen Ariane MS, RPA-C Unavailable Unav ailable Bartoszewski, Karmen Ariane MS, RPA-C Unavailable Unav ailable Bartoszewski, Karmen Ariane MS, RPA-C Unavailable Unav ailable Bartoszewski, Karmen Ariane MS, RPA-C Unavailable Unav ailable Bartoszewski, Karmenayaan Thakkar MS, RPA-C Unavailable Unav ailable Bartoszewski, Karmenayaan Thakkar MS, RPA-C Unavailable Unav ailable Bartoszewski, Karmen Ariane MS, RPA-C Unavailable Unav ailable Bartoszewski, Karmenayaan Lozoyale MS, RPA-C Unavailable Unav ailable Bartoszewski, Karmen Thakkar MS, RPA-C Unavailable Unav ailable Bartoszewski, Karmen Araine MS, RPA-C Unavailable Unav ailable Bartoszewski, Karmenayaan Thakkar MS, RPA-C Unavailable Unav ailable Re-disclosure Warning The records that you are about to access may contain information from federally-assisted alcohol or drug abuse programs. If such information is present, then the following federally mandated warning applies: This information has been disclosed to you from records protected by federal confidentiality rules (42 CFR part 2). The federal rules prohibit you from making any further disclosure of this information unless further disclosure is expressly permitted by the written consent of the person to whom it pertains or as otherwise permitted by 42 CFR part 2. A general authorization for the release of medical or other information is NOT sufficient for this purpose. The Federal rules restrict any use of the information to criminally investigate or prosecute any alcohol or drug abuse patient.The records that you are about to access may contain highly sensitive health information, the redisclosure of which is protected by Article 27-F of the [facility] Public Health law. If you continue you may have access to information: Regarding HIV / AIDS; Provided by facilities licensed or operated by the [facility] Office of Mental Health; or Provided by the [facility] Office for People With Developmental Disabilities. If such information is present, then the following [facility] mandated warning applies: This information has been disclosed to you from confidential records which are protected by state law. State law prohibits you from making any further disclosure of this information without the specific written consent of the person to whom it pertains, or as otherwise permitted by law. Any unauthorized further disclosure in violation of state law may result in a fine or snf sentence or both. A general authorization for the release of medical or other information is NOT sufficient authorization for further disc losure. Allergies and Adverse Reactions Type Description Substance Reaction Status Data Source(s ) No Known Drug Allergies No Known Drug Allergies [facility] No Known Environmental Allergies No Known Environmental Al lergies [facility] No Known Food Allergies No Known Food Allergies [facility] Family History Family Member Name Family Member Gender Family Member Status Date o f Status Description Data Source(s) Unknown Male Problem [facility] ([facility]) Unknown Male Problem [facility] ([facility] ) Encounters Encounter Providers Location Date Indications Data Source(s ) Outpatient Attender: Domingo Ospina MD Main Office 09/09/2020 01:15:00 PM EST [facility] ([facility]) Outpatient Attender: ASHLEY Richmond 0 08/25/2020 02:20:00 PM EST [facility] ([facility] ) Outpatient Attender: Paco [place] 0 04/14/2020 08:00:00 AM EDT [facility] ([facility] ) Outpatient Attender: Ariane Zhou i MS, RPA-CAttender: JOELLE MAK MDConsultant: Paco Massey MD 03/24/2020 01:01:00 P M EDT - 03/24/2020 01:01:00 PM EDT [facility] Outpatient Attender: JOELLE MAK MDConsultant: Paco haskins MD 12/18/2019 01:04:00 PM EDT - 12/18/2019 01:04:00 PM EDT [facility] Outpatient Attender: JOELLE MAK MD Family [facility] 12/18/2019 01 :00:00 PM EDT [facility] ([facility]) Outpatient Attender: Long Self NPAtt nenita: JOELLE MAK MDConsultant: Paco Massey MD 09/21/2019 01:06:00 PM EST - 09/21/2019 01:06:00 PM EST [facility] Outpatient Attender: Long Self NPConsultant: Paco anderson MD 09/03/2019 12:27:52 PM EST - 11/06/2019 03:09:00 PM EDT [facility] Patient discharged. Outpatient Attender: Long Self NPAttender: JOELLE [place] 08/20/2019 09:51:00 AM [facility] 08/20/2019 09:51:[address] [facility] Outpatient Attender: JOELLE MAK MD 08:59:00 AM [facility] 08/13/2019 08:59:[address] [facility] Outpatient Attender: JOELLE MAK MD 10:00:00 AM [facility] 08/08/2019 02:48:[address] [facility] Patient discharged. Outpatient Attender: JOELLE MAK MD 02:42:00 PM [facility] 08/01/2019 03:42:[address] [facility] Outpatient Attender: JOELLE MAK MD 12:51:00 PM [facility] 07/09/2019 12:51:[address] [facility] Outpatient Attender: Ariane Enrique MS, RPA-C 07/02/2019 08:25:00 AM [facility] 07/02/2019 09:25:[address] [facility] Medications Medication Brand Name Start Date Product Form Dose Route Admi nistrative Instructions Pharmacy Instructions Status Indications Reaction Description Data Source(s) Omeprazole 40 MG Delayed Release Oral Capsule Omeprazole 09/09/2020 12:00:00 AM EST ORAL active [facility] ([facility]) Sutab Sutab 09/09/2020 12:00:00 AM EST active [facility] ([facility]) Sucralfate 1000 MG Oral Tablet Sucralfate 08/25/2020 12:00:00 AM EST active [facility] ([facility]) Insurance Providers Payer name Policy type / Coverage type Policy ID Covered constitution party ID Covered constitution party's relationship to walker Policy Walker Plan Information [facility] [employer] PRO[employer] [id number] SP [id number] [facility] [employer] [id number] SP [id number] [facility] [employer] PRO[employer] [id number] SP [id number] [employer] FEP BS [id number] 18 [id number] [employer] [place] [id number] 18 [id number] [employer] FEDERAL-RECURRING [id number] 18 [id number] [employer] FEDERAL -PHYS [id number] 18 [id number] [employer] FEDERAL O/P [id number] 18 [id number] BL[employer] BLUE [employer] -O/P CO [id number] 18 [id number] Blue Cross [place] [id number] Self [id number] Federal BC/BS Commercial [id number] Self [id number] Blue [place] [id number] Self [id number] [place] [id number] Self [id number] BS Fed Plan Commercial [id number] Self [id number] [employer]hi/Emblem HLTH (pr) Medigap Part B [id number] Self [id number] BS Fed Plan Commercial [id number] Self [id number] Federal BC/BS Commercial [id number] Self [id number] Federal BC/BS Commercial [id number] Self [id number] Federal BC/BS Commercial [id number] Self [id number] [employer]CE[employer] BCBS FEDERAL [id number] SP [id number] Federal BC/BS Commercial [id number] Self 804 BC BS [place] FEDERAL [id number] SP [id number] [address] [address] ESTEFANIA R UNAVAILABLE [id number] UNAVA ILABLE BC BS [place] FEDERAL P [id number] S [id number] Problems, Conditions, and Diagnoses Code Display Name Description Problem Type Effective Dates Data Source(s) 826887676 Screening for malignant neoplasm of colo n Screening for malignant neoplasm of colon Problem 09/09/2020 12:00:00 AM EST [facility] ([facility]) [id number] Localized, primary osteoarthritis of the shoulder region Localized, primary osteoarthritis of the shoulder region Problem 12/18/19 12:00:00 AM EDT [facility] [id number] Encounter for other orthopedic aftercare Encounter for other orthopedic aftercare Diagnosis 03/24/2020 01:01:00 PM EDT [facility] [id number] Encounter for removal of sutures Encounter for r emoval of sutures Diagnosis 08/20/2019 09:51:[address] [facility] [id number] Encounter for other specified surgical a ftercare Encounter for other specified surgical aftercare Diagnosis 08/13/2019 08:59:00 AM [facility] [id number] Bicipital tendinitis, right shoulder Bicipital t endinitis, right shoulder Diagnosis 08/08/2019 10:00:[address] [facility] [id number] Bursitis of right shoulder Bursitis of right shoulder Diagnosis 08/08/2019 10:00:[address] [facility] [id number] Encounter for other preprocedural examin ation Encounter for other preprocedural examination Diagnosis 08/01/2019 02:42:00 PM EST [facility] Surgeries/Procedures Procedure Description Date Indications Data Source(s) ECG ROUTINE ECG W/LEAST 12 LDS W/I&R 04/14/2020 12:00: 00 AM EDT [facility] [facility]) Results ID Date Data Source [id number] 09/17/2020 12:00:00 PM EST [facility] Name Value Range Interpretation Code Description Data Lelo rce(s) Supporting Document(s) SARS coronavirus 2 RNA Not Detected [facility] [place] This lab was ordered by [facility] and reported by [facility]. ID Date Data Source [id number] 08/25/2020 03:41:00 PM EST [facility] ([facility]) Name Value Range Interpretation Code Description Data Lelo rce(s) Supporting Document(s) Helicobacter pylori IgG Ab [Units/volume] in Serum 0.51 0.00-0. 79 [facility] ([facility]) <content>Result Units: Index Value</cont ent>
<content>Negative <0.80</content>
<content>Equivocal 0.80 - 0.89</content>
<content>Positive >0.89</content>
<content> Performed at: RN - [facility]</content>
<content>[address], [place] [id number]</content>
<content>Rotating Equipment Engineer: Jordyn Valdovinos MD, Phone: [phone]</content>
<content></content> ID Date Data Source [id number] 08/25/2020 03:40:00 PM EST [facility] ([facility]) Name Value Range Interpretation Code Description Data Lleo rce(s) Supporting Document(s) Leukocytes [#/volume] in Blood by Automated count 6.3 x10*3/UL 4.1-10 .9 [facility] ([facility]) Erythrocytes [#/volume] in Blood by Automated count 5.17 x10*6/UL 4.2 0-6.30 [facility] ([facility]) Hemoglobin [Mass/volume] in Blood 15.4 g/dL 12.0-18.0 [facility] ([facility]) Hematocrit [Volume Fraction] of Blood by Automated count 45.2 % 3 7.0-51.0 [facility] ([facility]) MCV 87.3 fL 80.0-97.0 [facility] MCH 29.8 pg 26.0-32.0 [facility]) Erythrocyte distribution width [Ratio] by Automated count 13.1 % 11.6-13.7 [facility] ([facility]) Platelets [#/volume] in Blood by Automated count 161 x10*3/UL 140-440 [facility] ([facility]) MCHC 34.1 g/dL 31.0-38.0 [facility] Mid % 7.7 % 1.7-9.3 [facility] Lymph % 38.6 % 10.0-58.5 [facility] MPV 9.9 FL 7.8-11.0 [facility] Neut % 53.7 % 37.0-92.0 [facility] Mid # 0.5 x10*3/UL 0.1-0.6 [facility] ([facility]) Lymph # 2.4 x10*3/UL 0.6-4.1 [facility] ([facility]) Neut # 3.4 x10*3/UL 2.0-7.8 [facility] ([facility]) ID Date Data Source [id number] 08/25/2020 03:40:00 PM EST [facility] ([facility]) Name Value Range Interpretation Code Description Data Lelo rce(s) Supporting Document(s) Urea nitrogen [Mass/volume] in Serum or Plasma 17 mg/dL 7-18 [facility] ([facility]) Glucose [Mass/volume] in Serum or Plasma 94 mg/dL 74-99 [facility] ([facility]) 100-125 mg/dL PRE-DIABETES/FASTING >126 mg/dL DIABETES/FASTING Creatinine 1.1 mg/dL 0.6-1.3 [facility] Sodium [Moles/volume] in Serum or Plasma 138 meq/L 136-145 [facility] ([facility]) Potassium [Moles/volume] in Serum or Plasma 4.3 meq/L 3.5-5.1 [facility] ([facility]) Glomerular filtration rate/1.73 sq M pre dicted among non-blacks [Volume Rate/Area] in Serum or Plasma by Creatinine-based formula (MDRD) Laboratory test result [facility] Chloride [Moles/volume] in Serum or Plasma 102 meq/L 98-107 [facility] ([facility]) Calcium [Mass/volume] in Serum or Plasma 8.7 mg/dL 8.5-10.1 [facility] ([facility]) Carbon dioxide, total [Moles/volume] in Serum or Plasma 30 meq/L 21 -32 [facility] Glomerular filtration rate/1.73 sq M pre dicted among blacks [Volume Rate/Area] in Serum or Plasma by Creatinine-based formula (MDRD) Laboratory test result [facility] <content>CHRONIC KIDNEY DISEASE STAGING PER NKF</content>
<content></content>
<content>STAGE I & II GFR >= 60 NORMAL TO MILDLY DECREASED</content>
<content>STAGE III GFR 30-59 MODERATELY DECREASED</content>
<content>STAGE IV GFR 15-29 SEVERELY DECREASED</content>
<content>STAGE V GFR <15 VERY LITTLE GFR LEFT</content>
<content>ESRD GFR <15 ON TEST INSPECTION ENGINEER</content>
<content></content> ID Date Data Source [id number] 04/14/2020 08:41:00 AM EDT [facility]) Name Value Range Interpretation Code Description Data Lelo rce(s) Supporting Document(s) Prostate specific Ag [Mass/volume] in Serum or Plasma 0.83 ng/mL [facility] ([facility]) This assay was performed on the Siemens Dimension EXL using the B- Galactosidase/CPRG methodology and should not be compared interchangeably with other methods. The PSA should not be used alone as a screening test for the presence or absence of malignant disease. ID Date Data Source [id number] 04/14/2020 08:40:00 AM EDT [facility] ([facility]) Name Value Range Interpretation Code Description Data Lelo rce(s) Supporting Document(s) Cholesterol in LDL [Mass/volume] in Serum or Plasma by calcu lation 103 CALC 50-159 [facility] ([facility]) Cholesterol in HDL [Mass/volume] in Serum or Plasma 49 mg/dL 35-60 [facility] ([facility]) Triglyceride [Mass/volume] in Serum or Plasma 99 mg/dL 30-150 [facility] ([facility]) Cholesterol [Mass/volume] in Serum or Plasma 172 mg/dL 131-200 [facility] ([facility]) ID Date Data Source [id number] 04/14/2020 08:40:00 AM EDT [facility] ([facility]) Name Value Range Interpretation Code Description Data Lelo rce(s) Supporting Document(s) Urea nitrogen [Mass/volume] in Serum or Plasma 17 mg/dL 7-18 [facility] ([facility]) Glucose [Mass/volume] in Serum or Plasma 89 mg/dL 74-99 [facility] ([facility]) 100-125 mg/dL PRE-DIABETES/FASTING >126 mg/dL DIABETES/FASTING Potassium [Moles/volume] in Serum or Plasma 4.3 meq/L 3.5-5.1 [facility] ([facility]) Sodium [Moles/volume] in Serum or Plasma 142 meq/L 136-145 [facility] ([facility]) Creatinine 0.9 mg/dL 0.6-1.3 [facility] Calcium [Mass/volume] in Serum or Plasma 9.0 mg/dL 8.5-10.1 [facility] ([facility]) Chloride [Moles/volume] in Serum or Plasma 106 meq/L 98-107 [facility] ([facility]) Carbon dioxide, total [Moles/volume] in Serum or Plasma 24 meq/L 21 -32 [facility] ([facility]) Alkaline phosphatase isoenzyme [Units/volume] in Serum or Pl asma 93 mg/dL 46-116 [facility] ([facility]) Total Bilirubin 1.8 mg/dL 0.2-1.0 [facility] ([facility]) Aspartate aminotransferase [Enzymatic activity/volume] in Serum or Plasma 23 U/L 15-37 [facility] ([facility] ) Alanine aminotransferase [Enzymatic activity/volume] in Seru m or Plasma 36 U/L 12-78 [facility] ([facility]) Albumin [Mass/volume] in Serum or Plasma 4.1 g/dL 3.4-5.0 [facility] ([facility]) A/G Ratio 1.32 CALC 1.00-1.90 [facility]) Proteinase 3 Ab [Units/volume] in Serum 7.2 g/dL 6.4-8.2 [facility] ([facility]) Glomerular filtration rate/1.73 sq M pre dicted among non-blacks [Volume Rate/Area] in Serum or Plasma by Creatinine-based formula (MDRD) Laboratory test result [facility] Glomerular filtration rate/1.73 sq M pre dicted among blacks [Volume Rate/Area] in Serum or Plasma by Creatinine-based formula (MDRD) Laboratory test result [facility] <content>CHRONIC KIDNEY DISEASE STAGING PER NKF</content>
<content></content>
<content>STAGE I & II GFR >= 60 NORMAL TO MILDLY DECREASED</content>
<content>STAGE III GFR 30-59 MODERATELY DECREASED</content>
<content>STAGE IV GFR 15-29 SEVERELY DECREASED</content>
<content>STAGE V GFR <15 VERY LITTLE GFR LEFT</content>
<content>ESRD GFR <15 ON TEST INSPECTION ENGINEER</content>
<content></content> ID Date Data Source [id number] 04/14/2020 08:40:00 AM EDT [facility] ([facility]) Name Value Range Interpretation Code Description Data Lelo rce(s) Supporting Document(s) Leukocytes [#/volume] in Blood by Automated count 5.8 x10*3/UL 4.1-10 .9 [facility] ([facility]) Erythrocytes [#/volume] in Blood by Automated count 5.50 x10*6/UL 4.2 0-6.30 [facility] Hemoglobin [Mass/volume] in Blood 16.1 g/dL 12.0-18.0 [facility] ([facility]) MCV 86.8 fL 80.0-97.0 [facility] ([facility]) Hematocrit [Volume Fraction] of Blood by Automated count 47.8 % 3 7.0-51.0 [facility] ([facility]) MCHC 33.8 g/dL 31.0-38.0 [facility]) Erythrocyte distribution width [Ratio] by Automated count 13.0 % 11.6-13.7 [facility] ([facility]) MCH 29.3 pg 26.0-32.0 [facility]) MPV 9.8 FL 7.8-11.0 [facility] ([facility]) Platelets [#/volume] in Blood by Automated count 161 x10*3/UL 140-440 [facility] ([facility]) Lymph % 32.7 % 10.0-58.5 [facility]) Mid # 0.5 x10*3/UL 0.1-0.6 [facility] ([facility]) Mid % 8.0 % 1.7-9.3 [facility]) Lymph # 1.9 x10*3/UL 0.6-4.1 [facility] ([facility]) Neut % 59.3 % 37.0-92.0 [facility]) Neut # 3.4 x10*3/UL 2.0-7.8 [facility] ([facility]) ID Date Data Source [id number] 08/09/2019 10:38:00 [place] [address] OPERATIVE SUMMARYNAME: FADUMO Lilly DATE OF : 1965ATTENDING PHYS: Joelle Mak MD DATE: 08/08/19 MR#: [id number] OF PROCEDURE: 08/08/19PREOPERATIVE DIAGNOSIS: Right shoulder subacromial bursitis.POSTOPERATIVE DIAGNOSIS: 1. Right shoulder long biceps tendon tendinosis. 2. Right shoulder superior labrum anterior posterior lesion type 3 (10 o'clock to the 2 o'clock position). 3. 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 4. Right shoulder humeral head osteochondral defect grade 3 (15 mm/15 mm at the center of the articular surface). 5. Right shoulder glenohumeral degenerative joint disease. 6. Right shoulder subacromial bursitis.SURGEON: Joelle Mak MD.TELEGRAPHIC TYPEWRITER MECHANIC: QUIQUE SantiagoON FOR LABEL PASTER: Long Self NP provided essential assistance during this caseincluding careful retraction of vital structures, safe manipulation of anatomical structure,stabilization of scope, wound closure and dressing.ANESTHESIA: General and interscalene block.ANESTHESIOLOGIST: ADILENE RochaURGICAL TIME: 39 minutes.OPERATION PERFORMED: 1. Right shoulder evaluation under anesthesia. 2. Right shoulder diagnostic arthroscopy. 3. Right shoulder arthroscopic biceps tenotomy. 4. Right shoulder arthroscopic debridement and microfracturing of glenoid osteochondral defect. 5. Right shoulder arthroscopic debridement of humeral head osteochondral defect. 6. Right shoulder arthroscopic subacromial decompression. [address] [place] [address] OPERATIVE SUMMARYNAME: FADUMO Lilly DATE OF : 1965ATTENDING PHYS: Joelle Mak MD DATE: 08/08/19 MR#: [id number] BLOOD LOSS: Minimal.SPECIMENS: None.IMPLANTS: None.SPONGE COUNT: Correct.NEEDLE COUNT: Correct.COMPLICATIONS: None.INDICATION FOR PROCEDURE:The patient is a 54-year-old male with pain in his right dominant shoulder for the last 2 years. Thepatient's preoperative examination and imaging studies, including MRI suggested the above-noteddiagnosis. The patient failed conservative treatment, therefore, it was elected to perform the above-noted surgery.OPERATIVE FINDINGS:Evaluation under anesthesia demonstrated stable, supple shoulder. Forward flexion was 160degrees, external rotation 70 degrees, internal rotation 60 degrees. At time of arthroscopy, thecartilage of the humeral head had osteochondral defect grade 3 at the center of the articular surfacewhich was measured 15 mm/15 mm. There was also a grade 3 osteochondral defect of the entireinferior half of the glenoid articular surface. The inferior labrum was well attached. The superiorlabrum was torn between the 10 o'clock to the 2 o'clock position, creating superior labrum anteriorposterior lesion type 2. The capsule otherwise appeared to be normal. The biceps tendon wasinflamed, including its intrabicipital groove part. The rotator cuff tendons were completely normal.In the subacromial space, there was a thick bursitis.DESCRIPTION OF PROCEDURE:The patient was brought to the operating room and placed on the operating table in beach chair andsupine position. After adequate anesthesia was obtained, the patient was placed in the uprightseated position. The right arm was then elevated, prepped and draped in the usual sterile fashion.The patient received 2 gram of Ancef IV preoperatively as prophylaxis against infection.Arthroscopy was then performed through the standard portals with findings as noted above.ARTHROSCOPIC DEBRIDEMENT AND MICROFRACTURING OF GLENOIDOSTEOCHONDRAL DEFECT GRADE 3: [address] [place] [address] OPERATIVE SUMMARYNAME: FADUMO Lilly DATE OF : 1965ATTENDING PHYS: Joelle Mak MD DATE: 08/08/19 MR#: [id number] from the posterior portal and instrumenting through the anterior portal, I used a motorizedshaver and ring curette to debride the glenoid articular surface osteochondral defect to stablemargins. Then I used the micro-fracturing sets to create microfracture at the base of the lesion. Thiscreated a bleeding tunnel for stem cells to create cartilage healing of the defect. The defect wasmeasured to include the entire inferior half of the articular surface. The labrum adjacent to that wasstable.ARTHROSCOPIC DEBRIDEMENT OF HUMERAL HEAD OSTEOCHONDRALDEFECT:The scope was placed through the posterior portal and the anterior portal was used forinstrumentation. Using a motorized shaver, I debrided the humeral head osteochondral defect tostable cartilage margins. Then using a probe through the anterior portal, I measured theosteochondral defect and found it to be 15 mm/15 mm at the center of the articular surface.ARTHROSCOPIC BICEPS TENOTOMY:Scoping from the posterior portal and instrumenting through the anterior portal, the biceps tendonwas tenotomized with the radiofrequency device. I verified that the tendon was retracted all the wayinto the bicipital groove and out of the joint. I used the Electroblade to debride the upper labrum tostable margins and remove all the soft tissue between the labrum and the upper glenoid for goodhealing of the labrum.ARTHROSCOPIC SUBACROMIAL DECOMPRESSION:Using the 2 portal technique with motorized shaver and radiofrequency device, the bursa in thesubacromial space was removed from lateral to medial and from anterior to posterior. The rotatorcuff tendons were inspected from the bursal side and found to be completely normal. I created agood space between the acromion and the tendons. The coracoacromial ligament was left intact.The arthroscopic portals were closed with interrupted 3-0 nylon sutures. The shoulder waspositioned in a shoulder immobilizer and Cryo-Cuff device. The patient was transferred to therecovery room in satisfactory condition, having tolerated the procedure very well.POSTOPERATIVE THERAPY AMBROCIO COL:The patient will remain in the shoulder immobilizer for comfort only. After the block wears off, thepatient will start active and active-assisted range of motion of the shoulder. In the PACU, I taughtthe patient how to do shoulder, elbow, wrist and finger range of motion exercises, including selfstretching hourly. I, Joelle Mak, personally performed all elements of this surgery.DD: Joelle Mak MD 08/09/19 15:14DT: DELVIN 08/09/19 22:00 [address] [place] [address] OPERATIVE SUMMARYNAME: FADUMO Lilly DATE OF : 1965ATTENDING PHYS: Joelle Mak MD DATE: 08/08/19 MR#: [id number]: Joelle Mak MD 08/10/19 08:20 4 Name Value Range Interpretation Code Description Data Lelo rce(s) Supporting Document(s) ID Date Data Source [id number] 07/24/2019 02:05:00 PM EST [facility] ([facility]) Name Value Range Interpretation Code Description Data Lelo rce(s) Supporting Document(s) Urine Color YELLOW [facility] ([facility]) Urine PH 6.0 units 5.0-9.0 [facility] ([facility]) Urine Appearance CLEAR [facility] ([facility]) Urine Leukocytes NEGATIVE [facility] ([facility]) Specific gravity of Urine 1.020 1.005-1.030 [facility] ([facility]) Glucose [Presence] in Urine NEGATIVE mg/dL [facility] ([facility]) Urine Protein NEGATIVE 0-0 [facility] ([facility]) Urine Blood NEGATIVE [facility] ([facility]) Bilirubin.total [Mass/volume] in Serum or Plasma NEGATIVE [facility] ([facility]) Urine Ketone NEGATIVE mg/dL [facility] ([facility]) Urine Nitrite NEGATIVE [facility] ([facility]) Urine Urobilinogen 0.2 mg/dL 0.2-1.0 [facility] ([facility]) ID Date Data Source [id number] 07/24/2019 02:05:00 PM EST [facility] ([facility]) Name Value Range Interpretation Code Description Data Lelo rce(s) Supporting Document(s) Glucose [Mass/volume] in Serum or Plasma 87 mg/dL 74-99 [facility] ([facility]) 100-125 mg/dL PRE-DIABETES/FASTING >126 mg/dL DIABETES/FASTING Creatinine 1.0 mg/dL 0.6-1.3 [facility] Urea nitrogen [Mass/volume] in Serum or Plasma 15 mg/dL 7-18 [facility] ([facility]) Sodium [Moles/volume] in Serum or Plasma 140 meq/L 136-145 [facility] Potassium [Moles/volume] in Serum or Plasma 4.3 meq/L 3.5-5.1 [facility] Carbon dioxide, total [Moles/volume] in Serum or Plasma 31 meq/L 21 -32 [facility] Chloride [Moles/volume] in Serum or Plasma 103 meq/L 98-107 [facility] Calcium [Mass/volume] in Serum or Plasma 8.9 mg/dL 8.5-10.1 [facility] ([facility]) Glomerular filtration rate/1.73 sq M pre dicted among non-blacks [Volume Rate/Area] in Serum or Plasma by Creatinine-based formula (MDRD) >= 60 mL[facility] Glomerular filtration rate/1.73 sq M pre dicted among blacks [Volume Rate/Area] in Serum or Plasma by Creatinine-based formula (MDRD) >= 60 mL/min [facility] <content>CHRONIC KIDNEY DISEASE STAGING PER NKF</content>
<content></content>
<content>STAGE I & II GFR >= 60 NORMAL TO MILDLY DECREASED</content>
<content>STAGE III GFR 30-59 MODERATELY DECREASED</content>
<content>STAGE IV GFR 15-29 SEVERELY DECREASED</content>
<content>STAGE V GFR <15 VERY LITTLE GFR LEFT</content>
<content>ESRD GFR <15 ON TEST INSPECTION ENGINEER</content>
<content></content> ID Date Data Source [id number] 07/24/2019 02:05:00 PM EST [facility] Name Value Range Interpretation Code Description Data Lelo rce(s) Supporting Document(s) Erythrocytes [#/volume] in Blood by Automated count 5.17 x10*6/UL 4.2 0-6.30 [facility] Leukocytes [#/volume] in Blood by Automated count 6.3 x10*3/UL 4.1-10 .9 [facility] Hemoglobin [Mass/volume] in Blood 15.2 g/dL 12.0-18.0 [facility] ([facility]) Hematocrit [Volume Fraction] of Blood by Automated count 45.1 % 3 7.0-51.0 [facility] ([facility]) MCV 87.3 fL 80.0-97.0 [facility]) MCH 29.4 pg 26.0-32.0 [facility]) Erythrocyte distribution width [Ratio] by Automated count 12.5 % 11.6-13.7 [facility] ([facility]) MCHC 33.7 g/dL 31.0-38.0 [facility]) Platelets [#/volume] in Blood by Automated count 173 x10*3/UL 140-440 [facility] ([facility]) Lymph % 33.8 % 10.0-58.5 [facility]) MPV 9.8 FL 7.8-11.0 [facility]) Mid % 7.1 % 1.7-9.3 [facility]) Neut % 59.1 % 37.0-92.0 [facility]) Lymph # 2.1 x10*3/UL 0.6-4.1 [facility] ([facility]) Neut # 3.7 x10*3/UL 2.0-7.8 [facility] ([facility]) Mid # 0.5 x10*3/UL 0.1-0.6 [facility] ([facility]) Procedure Vital Signs ID Date Data Source [id number] Name Value Range Interpretation Code Description Data Source(s) Body temperature 97.7 [degF] 97.7 [degF] [facility] ([facility]) Body weight 93.895 kg 93.895 kg [facility] Body mass index (BMI) [Ratio] 30.1 kg/m2 30.1 k g/m2 [facility] ([facility]) Heart rate 55 /min 55 /min [facility]) Diastolic blood pressure 89 mm[Hg] 89 mm[Hg] [facility] ([facility]) Systolic blood pressure 135 mm[Hg] 135 mm[Hg] M [facility] ([facility]) Body weight 207.00 [lb_av] 207.00 [lb_av] [facility] ([facility]) Body height 69.5 [in_i] 69.5 [in_i] [facility] 5'9.50" Body mass index (BMI) [Ratio] 30.6 kg/m2 30.6 k g/m2 [facility] ([facility]) Body weight 209.00 [lb_av] 209.00 [lb_av] [facility] ([facility]) Body height 69.25 [in_i] 69.25 [in_i] [facility] 5'9.25" Heart rate 58 /min 58 /min [facility] Diastolic blood pressure 64 mm[Hg] 64 mm[Hg] [facility]) Systolic blood pressure 130 mm[Hg] 130 mm[Hg] [facility] ([facility]) Body mass index (BMI) [Ratio] 29.5 kg/m2 29.5 k g/m2 [facility] ([facility]) Oxygen saturation in Arterial blood by Pulse oximetry 99 % 99 % [facility]) Body weight 201.00 [lb_av] 201.00 [lb_av] [facility] ([facility]) Body height 69.25 [in_i] 69.25 [in_i] [facility] 5'9.25" Heart rate 68 /min 68 /min [facility] Body mass index (BMI) [Ratio] 29.9 kg/m2 29.9 k g/m2 [facility] ([facility]) Body weight 204.00 [lb_av] 204.00 [lb_av] [facility] ([facility]) Body height 69.25 [in_i] 69.25 [in_i] [facility]) 5'9.25" Diastolic blood pressure 78 mm[Hg] 78 mm[Hg] [facility] ([facility]) Systolic blood pressure 132 mm[Hg] 132 mm[Hg] [facility]) ID Date Data Source [id number] 09/21/2019 01:07:01 PM EST [facility] Name Value Range Interpretation Code Description Data Source(s) WEIGHT RECORDED 200.00 pounds 200.00 pounds [facility] Height 70 Inches 070 Inches [facility]
[2020-09-22] MEDS ORDERED: fentaNYL 100 MCG/2 ML INJECTION (J3010) As Ordered ONE (09:58)
[2020-09-22] MEDS ORDERED: propofoL 500 MG/50 ML VIAL As Ordered ONE (09:58)
[2020-09-22] MEDS ORDERED: LIDOCAINE 2% 100MG/5ML SDV (FOR ANES.) As Ordered ONE (09:59)
--- NOTE | 2020-09-22 10:19 | ROOR ---
Patient Name: Robert Slade Procedure Date: 09/22/2020 10:02 AM Date of : 1965 Age: 55 Room: [facility] Gender: Male Note Status: Finalized Procedure: Upper Endoscopy + Biopsies Indications: Epigastric abdominal pain, Heartburn Providers: Domingo Ospina MD Referring MD: VALERIE DSOUZA JR, MD Requesting Provider: Medicines: Monitored Anesthesia Care Complications: No immediate complications. Procedure: Pre-Anesthesia Assessment: - The heart rate, respiratory rate, oxygen saturations, blood pressure, adequacy of pulmonary ventilation, and response to care were monitored throughout the procedure. The Endoscope was introduced through the mouth, and advanced to the second part of duodenum. The upper GI endoscopy was accomplished without difficulty. The patient tolerated the procedure well. Findings: The Z-line was irregular and was found 40 cm from the incisors. Multiple biopsies were obtained with cold forceps for evaluation to rule out Garcia's Esophagus randomly at the gastroesophageal junction. Localized mild inflammation characterized by congestion (edema) and erythema was found in the gastric antrum. Biopsies were taken with a cold forceps for Helicobacter pylori testing. The exam of the duodenum was otherwise normal. Impression: - Z-line irregular, 40 cm from the incisors. - Mucosal changes suspicious for gastritis. Biopsied. - Multiple biopsies were obtained at the gastroesophageal junction. - The examination was otherwise normal. Recommendation: - Patient has a contact number available for emergencies. The signs and symptoms of potential delayed complications were discussed with the patient. Return to normal activities tomorrow. Written discharge instructions were provided to the patient. - High fiber diet. - Discharge patient to home. - Follow an antireflux regimen. - Continue present medications. - Await pathology results. - Telephone GI clinic for pathology results in 1 week. - Return to referring physician. - Repeat upper endoscopy for surveillance based on pathology results. - The findings and recommendations were discussed with the patient. Procedure Code(s): --- Professional --- 18679, Esophagogastroduodenoscopy, flexible, transoral; with biopsy, single or multiple Diagnosis Code(s): --- Professional --- K22.8, Other specified diseases of esophagus K31.89, Other diseases of stomach and duodenum R10.13, Epigastric pain R12, Heartburn CPT copyright 2019 [employer]. All rights reserved. The codes documented in this report are preliminary and upon judo teacher review may be revised to meet current compliance requirements. Domingo Ospina MD Domingo Ospina MD 09/22/2020 10:18:32 AM Electronically signed by Domingo Ospina MD Number of Addenda: 0 Note Initiated On: 09/22/2020 10:02 AM Estimated Blood Loss: Estimated blood loss: none.
--- NOTE | 2020-09-22 10:34 | ROOR ---
Patient Name: Robert Slade Procedure Date: 09/22/2020 10:03 AM Date of : 1965 Age: 55 Room: [facility] Gender: Male Note Status: Finalized Procedure: Total Colonoscopy to Cecum + ileoscopy Indications: Colon cancer screening in patient at increased risk: Colorectal cancer in brother Providers: Domingo Ospina MD Referring MD: VALERIE DSOUZA JR, MD Requesting Provider: Medicines: Monitored Anesthesia Care Complications: No immediate complications. Procedure: Pre-Anesthesia Assessment: - The heart rate, respiratory rate, oxygen saturations, blood pressure, adequacy of pulmonary ventilation, and response to care were monitored throughout the procedure. The Colonoscope was introduced through the anus and advanced to the terminal ileum, with identification of the appendiceal orifice and IC valve. The colonoscopy was performed without difficulty. The patient tolerated the procedure well. The quality of the bowel preparation was excellent. Findings: The perianal and digital rectal examinations were normal. Non-bleeding internal hemorrhoids were found during retroflexion. The hemorrhoids were small and Grade I (internal hemorrhoids that do not prolapse). Multiple small and large-mouthed diverticula were found in the recto-sigmoid colon, sigmoid colon and descending colon. The terminal ileum appeared normal. The exam was otherwise without abnormality on direct and retroflexion views. Impression: - Non-bleeding internal hemorrhoids. - Diverticulosis in the recto-sigmoid colon, in the sigmoid colon and in the descending colon. - The examined portion of the ileum was normal. - The examination was otherwise normal on direct and retroflexion views. - No specimens collected. - The exam was otherwise normal to the cecum. Recommendation: - Patient has a contact number available for emergencies. The signs and symptoms of potential delayed complications were discussed with the patient. Return to normal activities tomorrow. Written discharge instructions were provided to the patient. - High fiber diet. - Discharge patient to home. - Continue present medications. - Repeat colonoscopy in 5 years for screening purposes. - Return to referring physician. - The findings and recommendations were discussed with the patient. Procedure Code(s): --- Professional --- G0105, Colorectal cancer screening; colonoscopy on individual at high risk Diagnosis Code(s): --- Professional --- Z80.0, Family history of malignant neoplasm of digestive organs K64.0, First degree hemorrhoids K57.30, Diverticulosis of large intestine without perforation or abscess without bleeding CPT copyright 2019 [employer]. All rights reserved. The codes documented in this report are preliminary and upon descriptive catalog librarian review may be revised to meet current compliance requirements. Domingo Ospina MD Domingo Ospina MD 09/22/2020 10:34:15 AM Electronically signed by Domingo Ospina MD Number of Addenda: 0 Note Initiated On: 09/22/2020 10:03 AM Estimated Blood Loss: Estimated blood loss: none.
[2020-09-22 10:58] VITALS: BP 151/94
== END 2020-09-22 11:01 | disposition home or self-care (01) ==
LOC: M OPP 09:27
PROVIDERS: ATTEND Internal Medicine Gastroenterology
DX: Z12.11 Encounter for screening for malignant neoplasm of colon (principal); Z80.0 Family history of malignant neoplasm of digestive organs; R10.13 Epigastric pain; K64.0 First degree hemorrhoids; K57.30 Diverticulosis of large intestine without perforation or abscess without bleeding; D13.0 Benign neoplasm of esophagus; D13.1 Benign neoplasm of stomach; K22.8 Other specified diseases of esophagus; K31.89 Other diseases of stomach and duodenum; Z79.899 Other long term (current) drug therapy
CPT/HCPCS: 43239; 45378; 88305; J3010

== ENCOUNTER → 2021-01-01 | Outpatient (CLI) | payer BC ==
[~2021-01-01] MED LIST changes: +GASTROGRAFIN SOLUTION 30ML (Q9963) As Ordered ONE; +ISOVUE-370 76% 100ML VIAL As Ordered ONE; -NS 1,000 ML IV ONE
--- NOTE | 2021-01-02 08:04 | REP ---
INDICATION: ABD PAIN. COMPARISON: 09/25/2012 TECHNIQUE: Axial pre and post contrast-enhanced images from the lung bases to the pubic symphysis using oral and 100 cc Isovue 370 intravenous contrast material. [address] CT examination was performed using the following dose reduction techniques: Automated exposure control, adjustment of mA and/or kv according to the patient's size, and the use of iterative reconstruction technique. FINDINGS: Liver, spleen, pancreas, gallbladder, bilateral adrenal glands and kidneys are essentially normal. Left renal hypodensities most compatible with peripelvic cysts. 1.2 cm hepatic hypodensity along the anterior periphery of the medial left lobe again noted and consistent with small cyst The enteric system including stomach, small, and large bowel appears normal. No evidence for obstruction or acute inflammatory process. Normal terminal ileum and cecum are identified in the right lower quadrant. Scattered sigmoid diverticula noted without acute diverticulitis. Pelvis demonstrates normal bladder and age-appropriate prostate/seminal vesicles. No ascites. No free air. No intraperitoneal or retroperitoneal adenopathy. Abdominal aorta and vasculature appear normal. Musculoskeletal structures are intact and without acute osseous abnormality. IMPRESSION: No acute abdominopelvic pathology appreciated. Hepatic and left renal hypodensities compatible with cysts. Colonic diverticula without acute diverticulitis. <Electronically signed by Martinez Leslie > 01/02/21 0800
== END ==
LOC: M RAD 13:53
PROVIDERS: ATTEND Physician Assistant Medical
DX: R10.9 Unspecified abdominal pain (principal)
CPT/HCPCS: 74178; Q9963; Q9967

== ENCOUNTER → 2021-01-14 | Outpatient (REF) | payer BC ==
[~2021-01-14] MED LIST changes: -GASTROGRAFIN SOLUTION 30ML (Q9963) As Ordered ONE; -ISOVUE-370 76% 100ML VIAL As Ordered ONE
== END ==
LOC: M LAB REF 17:29
PROVIDERS: ATTEND Physician Assistant
DX: C44.310 Basal cell carcinoma of skin of unspecified parts of face (principal)

== ENCOUNTER → 2021-07-28 | Outpatient (CLI) | payer BC ==
[~2021-07-28] MED LIST changes: +GASTROGRAFIN SOLUTION 30ML (Q9963) As Ordered ONE; +ISOVUE-370 76% 100ML VIAL As Ordered ONE
--- NOTE | 2021-07-28 17:12 | REP ---
INDICATION: ABD PAIN. COMPARISON: 01/01/2021 TECHNIQUE: Axial contrast-enhanced images from the lung bases to the pubic symphysis using oral and 100 cc Isovue 370 intravenous contrast material. Precontrast images of the abdomen along with coronal and sagittal reformations obtained. This CT examination was performed using the following dose reduction techniques: Automated exposure control, adjustment of mA and/or kv according to the patient's size, and the use of iterative reconstruction technique. FINDINGS: Liver, spleen, pancreas, gallbladder, bilateral adrenal glands and kidneys are essentially normal in stable. Hepatic and left renal hypodensities again noted and consistent with stable benign cysts. The enteric system including stomach, small, and large bowel appears normal. No evidence for obstruction or acute inflammatory process. Normal terminal ileum and appendix are identified in the right lower quadrant. Sigmoid diverticulosis noted without acute diverticulitis. Pelvis demonstrates normal bladder and age-appropriate prostate/seminal vesicles. No ascites. No free air. No intraperitoneal or retroperitoneal adenopathy. Abdominal aorta and vasculature appear normal. Musculoskeletal structures are intact and without acute osseous abnormality. IMPRESSION: No acute abdominopelvic pathology appreciated. Stable nonacute findings including hepatic and renal cysts along with diverticulosis. <Electronically signed by Martinez Leslie > 07/28/21 [id number]
== END ==
LOC: M RAD 13:21
PROVIDERS: ATTEND Internal Medicine
DX: R10.9 Unspecified abdominal pain (principal); N28.1 Cyst of kidney, acquired
CPT/HCPCS: 74178; Q9963; Q9967